=== PATIENT | male | born 1980 | race Caucasian/White ===

== ENCOUNTER 2019-01-30 19:03 | Inpatient (IN) | payer MEDICAID ==
[~2019-01-30] VITALS: Ht 175.3 cm; Wt 77.1 kg
[2019-01-30 20:53] VITALS: BP 129/95
[2019-01-30] MEDS ORDERED: MAG HYDROX/AL HYDROX/SIMETH 30 ML UDC PO PRN (23:00)
[2019-01-30] MEDS ORDERED: ZOLPIDEM TARTRATE 5 MG TABLET PO PRN (23:00)
[2019-01-30] MEDS ORDERED: ONDANSETRON HCL/PF 4 MG/2 ML VIAL IVP PRN (23:00)
[2019-01-30] MEDS ORDERED: MAGNESIUM HYDROXIDE 30 ML UDC PO PRN (23:00)
[2019-01-30] MEDS ORDERED: DEXTROSE 50%-WATER 50 ML DISP.SYRIN IV PRN (23:00)
[2019-01-30] MEDS ORDERED: Z GUARD REMEDY 2 OZ OINT TP PRN (23:00)
[2019-01-30] MEDS ORDERED: TACR1CAP PO (23:33)
[2019-01-30] MEDS ORDERED: CINA30TA6 PO (23:33)
[2019-01-30] MEDS ORDERED: FAMO20TA80 GT (23:33)
[2019-01-30] MEDS ORDERED: ATOR40TA PO (23:33)
[2019-01-30] MEDS ORDERED: PHOS250T5 PO (23:33)
[2019-01-30] MEDS ORDERED: MYCO500V PO (23:33)
[2019-01-30] MEDS ORDERED: MAGN400T8 PO (23:33)
[2019-01-30] MEDS ORDERED: GLIM2TAB31 PO (23:33)
[2019-01-31] VITALS: BP 136/91
[2019-01-31] MEDS ORDERED: VANCOMYCIN 1 GM VIAL ONE (00:41)
[2019-01-31] MEDS: IV NS 0.9% 1,000 ML IV PRN ×2 (00:43→21:15)
[2019-01-31] MEDS ORDERED: VANCOMYCIN 1 GM in IV NS 0.9% 250 ML IV ONE (01:00)
[2019-01-31] MEDS ORDERED: CEFEPIME 1 GM in IV NS 0.9% 50 ML IV ONE (02:00)
[2019-01-31] MEDS ORDERED: CEFEPIME 1 GM VIAL ONE (02:29)
[2019-01-31] MEDS: ACETAMINOPHEN 325 MG TABLET PO PRN ×3 (02:49→23:39)
[2019-01-31 04:00] VITALS: BP 112/81
[2019-01-31 06:24] LABS: BASOPHILS % (AUTO) 0.4 % (0.0-2.0); EOSINOPHILS % (AUTO) 1.5 % (0.0-6.0); HEMATOCRIT 45 % (39-51); HEMOGLOBIN 15.3 g/dL (13.5-17.5); LYMPHOCYTES # (AUTO) 0.5 /CMM (0.8-4.8); LYMPHOCYTES % (AUTO) 10.2 % (20.0-44.0); MEAN CORPUSCULAR HGB CONC 34 g/dl (31.0-36.0); MEAN CORPUSCULAR VOLUME 96 fL (80-96); MONOCYTES # (AUTO) 0.5 /CMM (0.1-1.30); MONOCYTES % (AUTO) 10.2 % (2.0-12.0); NEUTROPHILS # (AUTO) 4.1 /CMM (1.8-8.9); NEUTROPHILS % (AUTO) 77.7 % (43.0-81.0); PLATELET COUNT (AUTO) 125 /CMM (150-450); RED BLOOD CELL COUNT(AUTO) 4.74 MIL/uL (4.5-6.0); WHITE BLOOD COUNT (AUTO) 5.2 K/uL (4.3-11.0)
[2019-01-31 06:37] LABS: ALBUMIN 3.3 g/dL (3.4-5.0); CALCIUM, SERUM 10.3 mg/dL (8.5-10.1); MAGNESIUM 1.7 mg/dL (1.8-2.4); PHOSPHORUS 2.6 mg/dL (2.5-4.9); POTASSIUM 3.7 mmol/L (3.5-5.1); TOTAL PROTEIN, SERUM 7.6 g/dL (6.4-8.2)
[2019-01-31 07:21] LABS: THYROID STIMULATING HORMONE 1.823 uIU/mL (0.358-3.74)
--- NOTE | 2019-01-31 07:29 | NUR ---
ERECTING CRANE OPERATOR OPENING NOTE RECEIVED PATIENT BY EMR. PATIENT IN BED COMPLAINING OF PAIN. PATIENT HAS FEVER OF 102 WILL CONTINUE TO MONITOR PATIENT. IV GAUGE OF #20 ON RT FOREARM AND RT WRIST PATENT AND RUNNING WITH NS AT 75ML/ HR. PATIENT IS AMBULATORY WITH SKIN INTACT. ALL SAFETY PRECAUTIONS HAVE BEEN APPLIED. WILL CONTINUE TO MONITOR. Addendum: 01/31/19 at 0734 by HARISH ZUNIGA RN TIME IS FOR 01-30-19 [id number]
--- NOTE | 2019-01-31 07:34 | NUR ---
MS RN CLOSING NOTE PATIENT IN BED WITH NO SIGN OF ANY DISCOMFORT. PATIENT HAS BEEN GIVEN PAIN MEDICATION. ALL SAFETY PRECAUTIONS HAVE BEEN APPLIED ENDORSED PATIENT TO MORNING SHIFT NURSE FOR [facility]ODA.
--- NOTE | 2019-01-31 07:54 | NUR ---
MS RN NOTE RECEIVED PATIENT IN BED , ALERT , ORIENTED, ON RA ,NO SOB AT THIS TIME, RT FA HL INTACT ,ON IVF ORDERED BED IN LOWEST AND LOCKED POSITION , T NOW 101.3 WILL START ON COOLING MEASURE ,PLAN OF CARE DISCUSSED WITH PATIENT, CALL LIGHT WITHIN REACH
[2019-01-31 08:00] VITALS: BP 139/97
[2019-01-31] MEDS: MAGNESIUM OXIDE 400 MG TABLET PO SCH ×2 (08:06→16:15)
[2019-01-31] MEDS: MYCOPHENOLATE MOFETIL 250 MG CAPSULE PO SCH ×3 (08:07→16:15)
[2019-01-31] MEDS: CINACALCET HCL 30 MG TABLET PO SCH (08:10)
[2019-01-31] MEDS: FAMOTIDINE (20 MG) 20 MG TABLET GT SCH ×2 (08:11→16:15)
[2019-01-31] MEDS: K PHOS NEUTRAL 250 MG TABLET PO SCH ×2 (08:11→16:15)
[2019-01-31] MEDS: TACROLIMUS ANHYDROUS 1 MG CAPSULE PO SCH ×2 (08:12→16:15)
[2019-01-31] MEDS: BLOOD SUGAR DIAGNOSTIC 1 EACH STRIP IN SCH ×4 (08:14→21:11)
[2019-01-31] MEDS: INSULIN REGULAR, HUMAN 100 UNIT/ML 3 ML VIAL SQ PRN ×3 (08:15→21:13)
[2019-01-31] MEDS: VANCOMYCIN 1 GM in IV D5W 250 ML IV SCH ×2 (10:28→16:04)
[2019-01-31] MEDS: Magnesium 1GM/D5W 100ML PREMIX 100 ML IV SCH ×2 (10:38→12:14)
--- NOTE | 2019-01-31 10:46 | NUR ---
MS RN NOTE DR DE JESUS AT BEDSIDE AWARE THAT T EARLIER T 101.3 US ABDOMEN DONE ORDERED , TYLENOL WAS GIVEN EARLIER , WILL MONITOR Addendum: 01/31/19 at 1048 by JOHN BAXTER RN T NOW 100.0
--- NOTE | 2019-01-31 12:34 | NUR ---
MS RN NOTE URINE TEST FROM [facility] RECEIVED, PLACED IN CHART, ALSO BLOOD SUGAR 133 MG\ DL ,REFUSED COVERAGE AT THIS TIME
[2019-01-31] MEDS ORDERED: FEE PK DOSING 1 MIN EA MC ONE (13:07)
[2019-01-31] MEDS: CEFEPIME 2 GM in IV D5W 100 ML IV SCH (14:38)
--- NOTE | 2019-01-31 14:41 | NUR ---
BREW HOUSE SUPERVISOR NOTE DR SAN UPHOLSTERY ESTIMATOR AT BEDSIDE, NO NEW ORDER AT THIS TIME .WILL F\U
--- NOTE | 2019-01-31 15:46 | NUR ---
MS RN NOTE PER DR JASWINDER MOHAN TO START ON RENAL DIET
[2019-01-31 16:00] VITALS: BP 136/88
[2019-01-31] MEDS: LEVOFLOXACIN 750 MG /D5W 150ML 750 MG in PREMIX 1 EA IV SCH (17:12)
[2019-01-31] MEDS: NYSTATIN (PYXIS) 500,000 UNIT/5 ML ORAL.SUSP PO SCH (17:12)
--- NOTE | 2019-01-31 18:39 | NUR ---
MS RN NOTE ALL NEEDS ATTENDED , FAXED TO [facility] FOR ADDITION BLOOD WORK AD URINE CX TO [facility] , ORDERED, HAVING RAHEEL , ABLE TO EAT SELF WILL MONITOR
--- NOTE | 2019-01-31 19:30 | NUR ---
MS RN NOTE, RECEIVED PATIENT IN BED, A/O X4 ABLE TO VERBALIZED NEEDS AND CONCERNS, ON ROOM AIR SATURATING WELL, NO SOB AT THIS TIME, RT FA S/L PATENT AND INTACT, 0.9% NS AT 75ML/HR, BED IN LOWEST AND LOCKED POSITION, AFEBRILE AT THIS TIME, CALL LIGHT WITHIN REACH , WILL CONTINUE TO MONITOR CLOSELY.
[2019-01-31 20:00] VITALS: BP 124/74
[2019-01-31] MEDS: ATORVASTATIN 40 MG TABLET PO SCH (21:07)
[2019-02-01] MEDS: CEFEPIME 2 GM in IV D5W 100 ML IV SCH ×2 (01:03→14:16)
--- NOTE | 2019-02-01 02:06 | NUR ---
RN NOTES, ENDORSED PATIENT TO RAGINI RN FOR CONTINUATION OF CARE, PATIENT IN STABLE CONDITION, NO SOB/ACUTE DISTRESS NOTED
--- NOTE | 2019-02-01 02:10 | NUR ---
RN NOTES RECEIVED PATIENT REPORT FROM EDUARDO RAMESH TRANSFER OF CARE. PATIENT IS IN THE CHAIR, A/A/OX4, NO SOB, NO PAIN AT THIS TIME. WILL CONTINUE TO MONITOR.
[2019-02-01 04:00] VITALS: BP 116/78
[2019-02-01 06:52] LABS: CALCIUM, SERUM 10.4 mg/dL (8.5-10.1); CREATININE 1.1 mg/dL (0.6-1.3); MAGNESIUM 2.3 mg/dL (1.8-2.4); POTASSIUM 3.8 mmol/L (3.5-5.1)
--- NOTE | 2019-02-01 07:25 | NUR ---
MS RN OPENING NOTE: RECIEVED PATIENT IN BED. AWAKE, ALERT AND ORIENTED X4. ON ROOM AIR AND TOLERATING WELL, NO SOB NOTED. NOT IN DISTRESS. WITH IV SITE IN RIGHT FOREARM G20, SITE CLEAN, DRY, SECURE AND PATENT WITH IVF OF NS @ 75 MLS/HR INFUSING WELL. NO PAIN NOTED NOR REPORTED AT THIS TIME. CALL LIGHT IN REACH, SIDE RAILS UP, BED LOCKED, LOW AND AT SEMI-PULLIAM'S POSITION. WILL CONTINUE TO MONITOR.
[2019-02-01 08:00] VITALS: BP 129/88
[2019-02-01] MEDS: BLOOD SUGAR DIAGNOSTIC 1 EACH STRIP IN SCH ×4 (08:09→21:47)
[2019-02-01] MEDS: INSULIN REGULAR, HUMAN 100 UNIT/ML 3 ML VIAL SQ PRN ×4 (08:12→21:53)
[2019-02-01] MEDS: TACROLIMUS ANHYDROUS 1 MG CAPSULE PO SCH (09:37)
[2019-02-01] MEDS: CINACALCET HCL 30 MG TABLET PO SCH (09:38)
[2019-02-01] MEDS: MYCOPHENOLATE MOFETIL 250 MG CAPSULE PO SCH ×2 (09:38→16:42)
[2019-02-01] MEDS: K PHOS NEUTRAL 250 MG TABLET PO SCH ×2 (09:39→16:42)
[2019-02-01] MEDS: FAMOTIDINE (20 MG) 20 MG TABLET GT SCH ×2 (09:39→16:42)
[2019-02-01] MEDS: MAGNESIUM OXIDE 400 MG TABLET PO SCH ×2 (09:40→16:42)
[2019-02-01] MEDS: NYSTATIN (PYXIS) 500,000 UNIT/5 ML ORAL.SUSP PO SCH ×3 (09:40→16:42)
--- NOTE | 2019-02-01 10:01 | NUR ---
MS RN NOTE: ORDER FOR REG DIET AND PREDNISONE 5MG PO QD OBTAINED FROM DR. DE JESUS. NOTED AND CARRIED OUT
[2019-02-01] MEDS: predniSONE 5 MG TABLET PO SCH (11:31)
[2019-02-01] MEDS: IV NS 0.9% 1,000 ML IV PRN (12:21)
[2019-02-01 16:00] VITALS: BP 113/74
[2019-02-01] MEDS: TACROLIMUS ANHYDROUS 0.5 MG CAPSULE PO SCH (16:43)
[2019-02-01] MEDS: LEVOFLOXACIN 750 MG /D5W 150ML 750 MG in PREMIX 1 EA IV SCH (17:00)
--- NOTE | 2019-02-01 19:17 | NUR ---
MS RN CLOSING NOTE: PATIENT IN BED. AWAKE, ALERT AND ORIENTED X4. ON ROOM AIR AND TOLERATING WELL, NO SOB NOTED. NOT IN DISTRESS. WITH IV SITE IN RIGHT FOREARM G20, SITE CLEAN, DRY, SECURE AND PATENT WITH IVF OF NS @ 75 MLS/HR INFUSING WELL. NO PAIN NOTED NOR REPORTED AT THIS TIME. AWARE OF PLAN TO COMPARE BLOOD CULTURE AND URINE CULTURE RESULTS FROM [facility] AND [facility]. PATIENT WILL HAVE DAUGHTER TO BRING RESULTS WHEN SHE VISITS. CALL LIGHT IN REACH, SIDE RAILS UP, BED LOCKED, LOW AND AT SEMI-PULLIAM'S POSITION. ENDORSED TO OFFICE COMMUNICATION PROFESSOR NURSE FOR [facility].
--- NOTE | 2019-02-01 19:50 | NUR ---
RN OPENING NOTES RECEIVED REPORT FROM KRISTIE CLARK. PATIENT A/A/O X4, ABLE TO VERBALIZE NEEDS. BREATHING EVEN & UNLABORED, TOLERATING ROOM AIR. DENIES ANY SOB OR DIFFICULTY BREATHING. RADIAL PULSES PRESENT. RIGHT FOREARM IV #20 INTACT & PATENT W/ DRESSING CDI & IVF NS INFUSING WELL @ 75 ML/HR. DENIES ANY PAIN OR DISCOMFORT @ THIS TIME. OOB IN CHAIR W/ CALL LIGHT PLACED WITHIN REACH. ABLE TO AMBULATE INDEPENDENTLY BUT INSTRUCTED TO CALL FOR ASSISTANCE. WILL CONTINUE TO MONITOR.
[2019-02-01 20:00] VITALS: BP 126/90
[2019-02-01] MEDS: ATORVASTATIN 40 MG TABLET PO SCH (21:47)
[2019-02-02] MEDS: CEFEPIME 2 GM in IV D5W 100 ML IV SCH ×2 (02:59→13:12)
[2019-02-02] MEDS: IV NS 0.9% 1,000 ML IV PRN (02:59)
[2019-02-02 04:00] VITALS: BP 131/87
[2019-02-02 07:36] LABS: CALCIUM, SERUM 9.6 mg/dL (8.5-10.1); CREATININE 0.9 mg/dL (0.6-1.3); POTASSIUM 3.7 mmol/L (3.5-5.1)
[2019-02-02 08:00] VITALS: BP 145/98
[2019-02-02] MEDS: BLOOD SUGAR DIAGNOSTIC 1 EACH STRIP IN SCH ×2 (08:04→12:21)
[2019-02-02] MEDS: MYCOPHENOLATE MOFETIL 250 MG CAPSULE PO SCH (08:05)
[2019-02-02] MEDS: FAMOTIDINE (20 MG) 20 MG TABLET GT SCH (08:05)
[2019-02-02] MEDS: NYSTATIN (PYXIS) 500,000 UNIT/5 ML ORAL.SUSP PO SCH ×2 (08:05→13:11)
[2019-02-02] MEDS: CINACALCET HCL 30 MG TABLET PO SCH (08:05)
[2019-02-02] MEDS: predniSONE 5 MG TABLET PO SCH (08:05)
[2019-02-02] MEDS: TACROLIMUS ANHYDROUS 0.5 MG CAPSULE PO SCH (08:05)
[2019-02-02] MEDS: K PHOS NEUTRAL 250 MG TABLET PO SCH (08:06)
[2019-02-02] MEDS: MAGNESIUM OXIDE 400 MG TABLET PO SCH (08:06)
--- NOTE | 2019-02-02 12:00 | NUR ---
RN NOTE: PATIENT REMAINS ALERT AWAKE ORIENTED X 4. ON ROOM AIR, NO BREATHING DISTRESS NOTED. DENIES CHEST PAIN & DISCOMFORT. AMBULATORY, STEADY GAIT. SKIN INTACT, NO REDNESS NOTED. IV RUNNING ORDERED BY MD. SAFETY MEASURES OBSERVED. ENCOURAGE PATIENT TO USE CALL LIGHT FOR ASSISTANCE. PLAN TO DISCHARGE HOME TODAY, WAITING FOR DAUGHTER TO FOUNDATION ENGINEER.
[2019-02-02 16:00] VITALS: BP 133/88
--- NOTE | 2019-02-02 16:47 | NUR ---
RN NOTE: PATIENT DISCHARGE HOME ALERT AWAKE ORIENTED X 4. ON ROOM AIR, NO BREATHING DISTRESS NOTED. DENIES PAIN & DISCOMFORT. DISCHARGE INSTRUCTIONS GIVEN TO THE PATIENT, VERBALIZE TO UNDERSTAND. ATB PRESCRIPTION GIVEN TO THE PATIENT WITH DISCHARGE PACKAGE. IV CATH REMOVED, APPLIED PRESSURE DRESSING. PATIENT LEFT WITH HIS DAUGHTER WITH ALL BELONGINGS. Addendum: 02/02/19 at 1650 by ESTRELLA DIANE RN SKIN INTACT, NO REDNESS NOTED. AMBULATORY/STEADY GAIT.
[2019-02-02] MEDS ORDERED: LEVOFLOXACIN (750 MG) 750 MG TABLET PO SCH (17:00)
== END 2019-02-02 16:30 | disposition home or self-care (01) | DRG 720 ==
LOC: TELE-TD 20:36 → MEDSG1 23:44
PROVIDERS: ADMIT Hospitalist
DX: A41.9 Sepsis, unspecified organism (principal); B37.0 Candidal stomatitis; Z94.0 Kidney transplant status; I10 Essential (primary) hypertension; J20.9 Acute bronchitis, unspecified; E78.5 Hyperlipidemia, unspecified; N50.811 Right testicular pain; Z87.891 Personal history of nicotine dependence; J98.11 Atelectasis; E21.2 Other hyperparathyroidism; E11.9 Type 2 diabetes mellitus without complications; N43.3 Hydrocele, unspecified
CPT/HCPCS: 36415; 71045-TC; 76770-TC; 76870-TC; 80048-TC; 80053-TC; 80061-TC; 80202-TC; 82962-TC; 83735-TC; 84100-TC; 84443-TC; 85025-TC; 85730-TC; 86403-TC; 87040-TC; 87081-TC; A4216; G0378; J0692; J1815; J1956; J3370; J3475; J7030; J7050; J7060; J7507; J7512; J7517